=== PATIENT | female | born 1955 ===

== ENCOUNTER 2017-02-16 15:38 | Observation (INO) | payer MEDICAID, OTHER ==
[2017-02-16 15:54] VITALS: BMI 21.2
--- NOTE | 2017-02-16 16:51 | C.PDOC ---
History Of Present Illness Patient is a 61 year old female who presents to the ER complaining of a pressure chest pain for the last 3 days. Patient states she has been taking medication with relief but the comes back. Patient's last episode was at 11:00 and last approximately an hour. Patient reports having a "thrombosis" in the heart 8-9 years ago, since then has had episodes of the pain. Patient has no PCP. Patient denies any nausea, vomiting, diarrhea, or radiation pain. Time Seen by Provider: 02/16/17 16:27 Chief Complaint (Nursing): Chest Pain History Per: Patient History/Exam Limitations: no limitations Onset/Duration Of Symptoms: Days (3, last episode at 11:00) Quality: Pressure Associated Symptoms: denies: Nausea Past Medical History Reviewed: Historical Data, Nursing Documentation, Vital Signs Vital Signs: Last Vital Signs Temp 98.4 F 02/16/17 20:37 Pulse 61 02/16/17 20:37 Resp 16 02/16/17 20:37 BP 141/78 02/16/17 20:37 Pulse Ox 100 02/16/17 20:37 - Medical History PMH: Cardia Arrhythmia, HTN Surgical History: No Surg Hx Family History: States: Unknown Family Hx - Social History Hx Alcohol Use: No Hx Substance Use: No - Immunization History Hx Tetanus Toxoid Vaccination: No Hx Influenza Vaccination: No Hx Pneumococcal Vaccination: No Review Of Systems Constitutional: Negative for: Fever, Chills Cardiovascular: Positive for: Chest Pain Respiratory: Negative for: Shortness of Breath Gastrointestinal: Negative for: Nausea, Vomiting, Diarrhea Physical Exam - Physical Exam Additional Physical Exam Comments: Constitutional: No acute distress. Head: Normocephalic. Atraumatic. Eyes: PERRL. ENT: Moist mucous membranes. Neck: Supple. Cardiovascular: Murmur. Loud S2 Chest: No tenderness. Respiratory: Clear to auscultation bilaterally. GI: Soft. Nontender. Nondistended. Back: No CVA tenderness. Musculoskeletal: No tenderness or swelling of extremities. Skin: No rash. Neurologic: Alert, no focal deficit. ED Course And Treatment - Laboratory Results Result Diagrams: 02/16/17 17:05 02/16/17 17:05 ECG: Interpreted By Me, Viewed By Me ECG Rhythm: Sinus Rhythm (Normal, 70) Interpretation Of ECG: No st/t elevation or t wave inversion. Q wave in V1-V3. Prominent P wave. O2 Sat by Pulse Oximetry: 100 (Room air) Pulse Ox Interpretation: Normal - Radiology CXR: Read By Radiologist CXR Interpretation: Yes: No Acute Disease (No focal consolidation, significant pleural effusion, or definite pneumothorax identified.) Medical Decision Making Medical Decision Making: Blood work and chest x-ray ordered. Aspirin PO administered. Dr. Munoz accepts patient for cardiac observation. Disposition - Disposition Disposition Time: 17:57 Condition: FAIR - POA Core Measure Indicators: Chest Pain - Clinical Impression Clinical Impression: Chest pain - Scribe Statement The provider has reviewed the documentation as recorded by the Scribe Yoel Winn All medical record entries made by the Elaibcarlitos were at my direction and personally dictated by me. I have reviewed the chart and agree that the record accurately reflects my personal performance of the history, physical exam, medical decision making, and the department course for this patient. I have also personally directed, reviewed, and agree with the discharge instructions and disposition.
[2017-02-16 17:09] LABS: BASO # 0.1 K/uL (0.0-0.2); BASO % 0.8 % (0.0-2.0); EOS # 0.3 K/uL (0.0-0.7); EOS % 3.6 % (0.0-4.0); HEMATOCRIT 38.9 % (34.0-47.0); LYMPH # 2.2 K/uL (1.0-4.3); LYMPH % 28.1 % (20.0-40.0); MEAN CELL VOLUME 84.6 fL (81.0-99.0); MEAN CORPUSCULAR HEMOGLOBIN 27.9 pg (27.0-31.0); MEAN PLATELET VOLUME 8.2 fL (7.2-11.7); MONO # 0.8 K/uL (0.0-0.8); MONO % 10.8 % (0.0-10.0); WHITE BLOOD COUNT 7.8 K/uL (4.8-10.8)
[2017-02-16 17:19] LABS: CHLORIDE 103 mmol/L (98-107); POTASSIUM 4.3 mmol/L (3.6-5.2); SODIUM 141 mmol/L (132-148)
[2017-02-16 17:21] LABS: AST/SGOT 40 U/L (14-36); BILIRUBIN,TOTAL 0.6 mg/dL (0.2-1.3); CARBON DIOXIDE 25 mmol/L (22-30); GFR AFRICAN-AMERICAN > 60
[2017-02-16 17:22] LABS: ALB/GLOB RATIO 1.2 (1.0-2.1); ALKALINE PHOSPHATASE 76 U/L (38-126); ALT/SGPT 37 U/L (9-52); BLOOD UREA NITROGEN 14 mg/dL (7-17); CALCIUM 9.1 mg/dl (8.6-10.4); GLUCOSE,RANDOM 95 mg/dL (65-105); TOTAL PROTEIN 8.1 g/dL (6.3-8.3)
--- NOTE | 2017-02-16 18:51 | RAD ---
HISTORY: r/o PNA COMPARISON: Chest x-ray performed 01/30/16 TECHNIQUE: Chest PA and lateral FINDINGS: Examination limited by habitus. LUNGS: No focal consolidation. Please note that chest x-ray has limited sensitivity for the detection of pulmonary masses. PLEURA: No significant pleural effusion identified. No definite pneumothorax . CARDIOVASCULAR: Heart size appears top normal. Atherosclerotic calcification of the aortic knob. OSSEOUS STRUCTURES: Osseous demineralization. Degenerative changes of the spine and shoulders. VISUALIZED UPPER ABDOMEN: Unremarkable. OTHER FINDINGS: None. IMPRESSION: No focal consolidation, significant pleural effusion, or definite pneumothorax identified.
--- NOTE | 2017-02-17 00:07 | CP.PCM.HP ---
<Kelsey Flores - Last Filed: 02/17/17 02:40> History of Present Illness - History of Present Illness History of Present Illness: CC: "chest pain" 61 yea old female with PMHx of arrhythmia, HTN, heart murmur and Hx of "thrombosis in heart", presents with 6 month history of chest pain. Episodes last for a few minutes and usually resolve after patient takes muscle relaxer prescribed to her by her PMD in [facility]. This morning patient has chest pain that lasted for 1 hour. Chest pain was left sided, non radiating, pressure like and intermittent. It did not radiate anywhere and was rated at a 5 /10 at its worse, now 0/10. Patient took muscle relaxant, which helped for a few minutes, but then the pain re-occurred. Patient was brought in by daughter for evaluation. Pain in the past usually occurs when patient is cooking, washing dishes or cleaning. She admits to SOB when she climbs 5-6 steps. She is able to lay flat and does not wake up in the middle of the night gasping for air. Patient also reports palpitations when she walks for long distances. Patient last saw her PMD in October 2016 and was told "heart was large". She admits to "pre-infarct" 10 years ago. She also reports "thrombosis" in her heart 8-9 years ago and states she was not given any blood thinners. She was told some time ago that she has a murmur. She denies fevers, chills, nausea, vomiting, headache, leg swelling, changes in vision, cough. PMHx of arrhythmia, HTN, heart murmur and Hx of "thrombosis in heart". Medications: Bisoprolol 10 mg PO daily, Aspirin 81 mg PO daily, unknown muscle relaxant from [place]. NKDA Social Hx: quit tobacco use 20 years ago, denies alcohol and illicit drug use. Family Hx: Mother with DM. Surgery Hx: none PMD: in [place]. Present on Admission - Present on Admission Any Indicators Present on Admission: No Review of Systems - Constitutional Constitutional: absent: Chills, Fatigue, Fever - EENT Eyes: absent: Blurred Vision, Change in Vision - Cardiovascular Cardiovascular: Chest Pain, Chest Pain at Rest, Chest Pain with Activity, Dyspnea, Irregular Heart Rhythm, Palpitations. absent: Diaphoresis, Pain Radiating to Arm/Neck/Jaw, Leg Edema, Lightheadedness, Orthopnea, Paroxysmal Nocturnal Dyspnea, Pedal Edema, Radiating Pain, Syncope - Respiratory Respiratory: Dyspnea on Exertion. absent: Cough, Dyspnea - Gastrointestinal Gastrointestinal: absent: Abdominal Pain, Constipation, Diarrhea, Nausea, Vomiting - Genitourinary Genitourinary: absent: Difficulty Urinating, Dysuria - Musculoskeletal Musculoskeletal: absent: Arthralgias, Back Pain, Numbness, Tingling - Integumentary Integumentary: absent: Lesions - Neurological Neurological: absent: Dizziness, Numbness, Headaches, Syncope, Tingling - Endocrine Endocrine: absent: Palpitations, Polydipsia, Polyuria Past Patient History - Infectious Disease Hx of Infectious Diseases: None - Past Social History Smoking Status: Never Smoked - CARDIAC Hx Cardia Arrhythmia: Yes Hx Hypertension: Yes - PSYCHIATRIC Hx Substance Use: No - SURGICAL HISTORY Hx Surgeries: No - ANESTHESIA Hx Anesthesia: No Meds Allergies/Adverse Reactions: Allergies Allergy/AdvReac Type Severity Reaction Status Date / Time No Known Allergies Allergy Verified 02/16/17 15:54 Physical Exam - Constitutional Appears: No Acute Distress - Head Exam Head Exam: ATRAUMATIC, NORMAL INSPECTION, NORMOCEPHALIC - Eye Exam Eye Exam: EOMI, Normal appearance Pupil Exam: NORMAL ACCOMODATION - ENT Exam ENT Exam: Mucous Membranes Moist - Neck Exam Neck exam: Positive for: Full Rom, Normal Inspection - Respiratory Exam Respiratory Exam: Clear to Auscultation Bilateral, NORMAL BREATHING PATTERN - Cardiovascular Exam Cardiovascular Exam: REGULAR RHYTHM, +S1, +S2, Systolic Murmur - GI/Abdominal Exam GI & Abdominal Exam: Normal Bowel Sounds, Soft. absent: Distended, Tenderness - Extremities Exam Extremities exam: Positive for: full ROM, normal inspection. Negative for: pedal edema, tenderness - Back Exam Back exam: NORMAL INSPECTION - Neurological Exam Neurological exam: Alert, CN II-XII Intact, Oriented x3 - Psychiatric Exam Psychiatric exam: Normal Affect, Normal Mood - Skin Skin Exam: Dry, Normal Color, Warm Results - Vital Signs Recent Vital Signs: Last Vital Signs Temp 97.9 F 02/16/17 22:20 Pulse 67 02/16/17 22:20 Resp 18 02/16/17 22:20 BP 162/81 H 02/16/17 22:20 Pulse Ox 97 02/16/17 22:20 - Labs Result Diagrams: 02/16/17 17:05 02/16/17 17:05 Assessment & Plan (1) Chest pain Assessment and Plan: Admit to Tele/obs ANNA MARIE negative X 1. EKG: NSR 70 bpm, with non specific ST changes. f/u ANNA MARIE Q8H X2 with EKG. CXR shows left atrial enlargement as reviewed by attending. No infiltrates or pleural effusion as per official report. f/u FLP, Hgb A1C, TSH. Resume home meds: ASA 81 mg PO daily Bisoprolol 10 mg PO daily Status: Acute (2) Hx of cardiac arrhythmia Assessment and Plan: NSR on EKG. Patient reports history of thrombus in the heart and murmur. f/u 2D ECHO Status: Chronic (3) HTN (hypertension) Assessment and Plan: Bisoprolol 10 mg PO daily Status: Chronic (4) Prophylactic measure Assessment and Plan: Heparin 5000 SC Q8H Pepcid 20 mg PO BID SCDs Status: Acute <Jose Munoz P - Last Filed: 02/25/17 22:22> Results - Vital Signs Recent Vital Signs: Last Vital Signs Temp 97.3 F L 02/17/17 15:29 Pulse 64 02/17/17 15:29 Resp 18 02/17/17 15:29 BP 131/86 02/17/17 15:29 Pulse Ox 95 02/17/17 15:29 - Labs Result Diagrams: 02/17/17 07:25 02/17/17 07:25 Attending/Attestation - Attestation I have personally seen and examined this patient.: Yes I have fully participated in the care of the patient.: Yes I have reviewed all pertinent clinical information: Yes
[2017-02-17 07:34] LABS: BASO # 0.1 K/uL (0.0-0.2); BASO % 0.8 % (0.0-2.0); EOS # 0.4 K/uL (0.0-0.7); EOS % 5.3 % (0.0-4.0); HEMATOCRIT 39.3 % (34.0-47.0); LYMPH # 2.8 K/uL (1.0-4.3); LYMPH % 37.5 % (20.0-40.0); MEAN CELL VOLUME 84.8 fL (81.0-99.0); MEAN PLATELET VOLUME 8.2 fL (7.2-11.7); MONO # 0.8 K/uL (0.0-0.8); MONO % 10.4 % (0.0-10.0); NRBC % 0.1 % (0.0-2.0); RED CELL DISTRIBUTION WIDTH 13.4 % (11.5-14.5); WHITE BLOOD COUNT 7.5 K/uL (4.8-10.8)
[2017-02-17 08:14] VITALS: RESP 18
[2017-02-17 08:16] LABS: CHLORIDE 98 mmol/L (98-107); POTASSIUM 4.8 mmol/L (3.6-5.2); SODIUM 140 mmol/L (132-148)
[2017-02-17 08:17] LABS: CHOLESTEROL 277 mg/dL (0-199)
[2017-02-17 08:18] LABS: ALB/GLOB RATIO 1.1 (1.0-2.1); ALKALINE PHOSPHATASE 82 U/L (38-126); ALT/SGPT 32 U/L (9-52); AST/SGOT 37 U/L (14-36); BILIRUBIN,TOTAL 0.4 mg/dL (0.2-1.3); BLOOD UREA NITROGEN 13 mg/dL (7-17); CALCIUM 9.3 mg/dl (8.6-10.4); CARBON DIOXIDE 30 mmol/L (22-30); GFR AFRICAN-AMERICAN > 60; GLUCOSE,RANDOM 89 mg/dL (65-105); TOTAL PROTEIN 7.8 g/dL (6.3-8.3)
[2017-02-17 08:43] LABS: THYROID STIMULATING HORMONE 3.31 mIU/L (0.46-4.68)
[2017-02-17 15:30] VITALS: BP 131/86; PULSE 64; TEMP 97.3; O2SAT 95
--- NOTE | 2017-02-17 15:46 | CP.PCM.DIS ---
<DebbieDara - Last Filed: 02/17/17 15:56> Provider - Provider Date of Admission: 02/16/17 20:16 Attending physician: Jose Munoz MD Primary care physician: None here- in [place]- instructed to go to [facility] Consults: None Time Spent in preparation of Discharge (in minutes): 60 Hospital Course - Lab Results Lab Results: Most Recent Lab Values WBC 7.5 K/uL (4.8-10.8) 02/17/17 07:25 RBC 4.63 Mil/uL (3.80-5.20) 02/17/17 07:25 Hgb 13.0 g/dL (11.0-16.0) 02/17/17 07:25 Hct 39.3 % (34.0-47.0) 02/17/17 07:25 MCV 84.8 fL (81.0-99.0) 02/17/17 07:25 MCH 28.0 pg (27.0-31.0) 02/17/17 07:25 MCHC 33.0 g/dL (33.0-37.0) 02/17/17 07:25 RDW 13.4 % (11.5-14.5) 02/17/17 07:25 Plt Count 367 K/uL (130-400) 02/17/17 07:25 MPV 8.2 fL (7.2-11.7) 02/17/17 07:25 Neut % (Auto) 46.0 % (50.0-75.0) L 02/17/17 07:25 Lymph % (Auto) 37.5 % (20.0-40.0) 02/17/17 07:25 [place]ockley % (Auto) 10.4 % (0.0-10.0) H 02/17/17 07:25 Eos % (Auto) 5.3 % (0.0-4.0) H 02/17/17 07:25 Baso % (Auto) 0.8 % (0.0-2.0) 02/17/17 07:25 Neut # 3.5 K/uL (1.8-7.0) 02/17/17 07:25 Lymph # 2.8 K/uL (1.0-4.3) 02/17/17 07:25 [place] # 0.8 K/uL (0.0-0.8) 02/17/17 07:25 Eos # 0.4 K/uL (0.0-0.7) 02/17/17 07:25 Baso # 0.1 K/uL (0.0-0.2) 02/17/17 07:25 Sodium 140 mmol/L (132-148) 02/17/17 07:25 Potassium 4.8 mmol/L (3.6-5.2) 02/17/17 07:25 Chloride 98 mmol/L (98-107) 02/17/17 07:25 Carbon Dioxide 30 mmol/L (22-30) 02/17/17 07:25 Anion Gap 17 (10-20) 02/17/17 07:25 BUN 13 mg/dL (7-17) 02/17/17 07:25 Creatinine 0.8 MG/DL (0.7-1.2) 02/17/17 07:25 Est GFR ( Amer) > 60 02/17/17 07:25 Est GFR (Non-Af Amer) > 60 02/17/17 07:25 Random Glucose 89 mg/dL (65-105) 02/17/17 07:25 Hemoglobin A1c 5.6 % (4.2-6.5) 02/17/17 07:25 Calcium 9.3 mg/dl (8.6-10.4) 02/17/17 07:25 Total Bilirubin 0.4 mg/dL (0.2-1.3) 02/17/17 07:25 AST 37 U/L (14-36) H 02/17/17 07:25 ALT 32 U/L (9-52) 02/17/17 07:25 Alkaline Phosphatase 82 U/L (38-126) 02/17/17 07:25 Total Creatine Kinase 48 U/L (30-135) 02/17/17 14:55 CK-MB (Mass) 0.47 ng/mL (0.0-3.38) 02/17/17 14:55 Troponin I < 0.0120 ng/mL (0.00-0.120) 02/16/17 17:05 Troponin I, Quant < 0.0120 ng/mL (0.00-0.120) 02/17/17 14:55 Total Protein 7.8 g/dL (6.3-8.3) 02/17/17 07:25 Albumin 4.1 g/dL (3.5-5.0) 02/17/17 07:25 Globulin 3.7 gm/dL (2.2-3.9) 02/17/17 07:25 Albumin/Globulin Ratio 1.1 (1.0-2.1) 02/17/17 07:25 Triglycerides 340 mg/dL (0-149) H 02/17/17 07:25 Cholesterol 277 mg/dL (0-199) H 02/17/17 07:25 LDL Cholesterol Direct 150 mg/dL (0-129) H 02/17/17 07:25 HDL Cholesterol 34 mg/dL (30-70) 02/17/17 07:25 TSH 3rd Generation 3.31 mIU/L (0.46-4.68) 02/17/17 07:25 - Hospital Course Hospital Course: 61 yea old female with PMHx of arrhythmia, HTN, heart murmur and Hx of "thrombosis in heart", presents with 6 month history of chest pain. Episodes last for a few minutes and usually resolve after patient takes muscle relaxer prescribed to her by her PMD in [facility]. This morning patient has chest pain that lasted for 1 hour. Chest pain was left sided, non radiating, pressure like and intermittent. It did not radiate anywhere and was rated at a 5 /10 at its worse, now 0/10. Patient took muscle relaxant, which helped for a few minutes, but then the pain re-occurred. Patient was brought in by daughter for evaluation. Pain in the past usually occurs when patient is cooking, washing dishes or cleaning. She admits to SOB when she climbs 5-6 steps. She is able to lay flat and does not wake up in the middle of the night gasping for air. Patient also reports palpitations when she walks for long distances. Patient last saw her PMD in October 2016 and was told "heart was large". She admits to "pre-infarct" 10 years ago. She also reports "thrombosis" in her heart 8-9 years ago and states she was not given any blood thinners. She was told some time ago that she has a murmur. She denies fevers, chills, nausea, vomiting, headache, leg swelling, changes in vision, cough. Pt admitted to hospital for cardiac work up. ROMIs and EKGs were negative x 3. Echo cardiogram was done- at time of discharge the official report is pending - pt instructed to follow up in [facility] to get results. On hospital day 1, symptoms were completely resolved, cardiac work up negative excluding Lipid panel which showed hypercholesterolemia- pt started on statin. Patient stable and ready for discharge with instructions to follow up in the [facility] to establish care and get results of echo. Diagnoses: atypical chest pain, hyperlipidemia, arrhythmia, heart murmur Please see EMR for full details of hospitalization. - Date & Time of H&P Date of H&P: 02/17/17 Time of H&P: 00:07 Discharge Exam - Head Exam Head Exam: ATRAUMATIC, NORMAL INSPECTION, NORMOCEPHALIC - Eye Exam Eye Exam: EOMI, Normal appearance, PERRL Pupil Exam: NORMAL ACCOMODATION, PERRL - ENT Exam ENT Exam: Mucous Membranes Moist, Normal Exam - Neck Exam Neck exam: Full Rom, Normal Inspection - Respiratory Exam Respiratory Exam: Clear to PA & Lateral, NORMAL BREATHING PATTERN, UNREMARKABLE. absent: Chest Wall Tenderness, Rales, Rhonchi, Wheezes, Respiratory Distress, Stridor - Cardiovascular Exam Cardiovascular Exam: REGULAR RHYTHM, +S1, +S2, Systolic Murmur - GI/Abdominal Exam GI & Abdominal Exam: Normal Bowel Sounds, Soft, Unremarkable. absent: Tenderness - Extremities Exam Extremities exam: full ROM, normal inspection - Neurological Exam Neurological exam: Alert, CN II-XII Intact, Normal Gait, Oriented x3 - Psychiatric Exam Psychiatric exam: Normal Affect, Normal Mood - Skin Skin Exam: Dry, Intact, Normal Color, Warm Discharge Plan - Discharge Medications Prescriptions: Aspirin [Aspirin Chewable] 81 mg PO DAILY #30 chew Rosuvastatin Calcium 2.5 [Crestor] 2.5 mg PO HS #30 tab - Follow Up Plan Condition: STABLE Disposition: HOME/ ROUTINE Additional Instructions: Patient stable and cleared for discharge as per Dr. Murphy. Please take Aspirin 81mg everyday for your heart. You are begin discharged on a medication to help lower your cholesterol - please take it every night, sometimes it can cause muscle soreness- this should go away. If it does not go away, please see your primary care provider. If you do not have a primary care provider, please call to make an appointment with [facility] the [facility] to establish primary care provider services. They will help re-fill prescriptions and monitor your health. Additionally, then echocardiogram of your heart has not been officially read by a [employer] teacher yet, so you will be able to get your results in the clinic at that time. Please return to hospital if you have any recurrence of symptoms. <Barney Murphy - Last Filed: 02/17/17 16:11> Provider - Provider Date of Admission: 02/16/17 20:16 Attending physician: Jose Munoz MD [facility] Course - Lab Results Lab Results: Most Recent Lab Values WBC 7.5 K/uL (4.8-10.8) 02/17/17 07:25 RBC 4.63 Mil/uL (3.80-5.20) 02/17/17 07:25 Hgb 13.0 g/dL (11.0-16.0) 02/17/17 07:25 Hct 39.3 % (34.0-47.0) 02/17/17 07:25 MCV 84.8 fL (81.0-99.0) 02/17/17 07:25 MCH 28.0 pg (27.0-31.0) 02/17/17 07:25 MCHC 33.0 g/dL (33.0-37.0) 02/17/17 07:25 RDW 13.4 % (11.5-14.5) 02/17/17 07:25 Plt Count 367 K/uL (130-400) 02/17/17 07:25 MPV 8.2 fL (7.2-11.7) 02/17/17 07:25 Neut % (Auto) 46.0 % (50.0-75.0) L 02/17/17 07:25 Lymph % (Auto) 37.5 % (20.0-40.0) 02/17/17 07:25 [place] % (Auto) 10.4 % (0.0-10.0) H 02/17/17 07:25 Eos % (Auto) 5.3 % (0.0-4.0) H 02/17/17 07:25 Baso % (Auto) 0.8 % (0.0-2.0) 02/17/17 07:25 Neut # 3.5 K/uL (1.8-7.0) 02/17/17 07:25 Lymph # 2.8 K/uL (1.0-4.3) 02/17/17 07:25 [place] # 0.8 K/uL (0.0-0.8) 02/17/17 07:25 Eos # 0.4 K/uL (0.0-0.7) 02/17/17 07:25 Baso # 0.1 K/uL (0.0-0.2) 02/17/17 07:25 Sodium 140 mmol/L (132-148) 02/17/17 07:25 Potassium 4.8 mmol/L (3.6-5.2) 02/17/17 07:25 Chloride 98 mmol/L (98-107) 02/17/17 07:25 Carbon Dioxide 30 mmol/L (22-30) 02/17/17 07:25 Anion Gap 17 (10-20) 02/17/17 07:25 BUN 13 mg/dL (7-17) 02/17/17 07:25 Creatinine 0.8 MG/DL (0.7-1.2) 02/17/17 07:25 Est GFR ( Amer) > 60 02/17/17 07:25 Est GFR (Non-Af Amer) > 60 02/17/17 07:25 Random Glucose 89 mg/dL (65-105) 02/17/17 07:25 Hemoglobin A1c 5.6 % (4.2-6.5) 02/17/17 07:25 Calcium 9.3 mg/dl (8.6-10.4) 02/17/17 07:25 Total Bilirubin 0.4 mg/dL (0.2-1.3) 02/17/17 07:25 AST 37 U/L (14-36) H 02/17/17 07:25 ALT 32 U/L (9-52) 02/17/17 07:25 Alkaline Phosphatase 82 U/L (38-126) 02/17/17 07:25 Total Creatine Kinase 48 U/L (30-135) 02/17/17 14:55 CK-MB (Mass) 0.47 ng/mL (0.0-3.38) 02/17/17 14:55 Troponin I < 0.0120 ng/mL (0.00-0.120) 02/16/17 17:05 Troponin I, Quant < 0.0120 ng/mL (0.00-0.120) 02/17/17 14:55 Total Protein 7.8 g/dL (6.3-8.3) 02/17/17 07:25 Albumin 4.1 g/dL (3.5-5.0) 02/17/17 07:25 Globulin 3.7 gm/dL (2.2-3.9) 02/17/17 07:25 Albumin/Globulin Ratio 1.1 (1.0-2.1) 02/17/17 07:25 Triglycerides 340 mg/dL (0-149) H 02/17/17 07:25 Cholesterol 277 mg/dL (0-199) H 02/17/17 07:25 LDL Cholesterol Direct 150 mg/dL (0-129) H 02/17/17 07:25 HDL Cholesterol 34 mg/dL (30-70) 02/17/17 07:25 TSH 3rd Generation 3.31 mIU/L (0.46-4.68) 02/17/17 07:25 Attending/Attestation - Attestation I have personally seen and examined this patient.: Yes I have fully participated in the care of the patient.: Yes I have reviewed all pertinent clinical information, including history, physical exam and plan: Yes Notes (Text): Medical attending: Patient was seen and examined by me, agrees the above note by medical technical writer. We saw the patient together. Patient's family member was present as well and helped with translation. At this time the patient was no longer having any chest pain at rest, and was not having shortness of breath or difficulty breathing. On exam we also had the patient walk with us into the hallway. She was able to ambulate without any assistance, she denied having shortness of breath when we walked, denied having chest pain when walking, denied having palpitations or abdominal pain we walked. We walked up to the telemetry station. On review of telemetry her heart rate is stable about 70-80 bpm appears to be normal sinus did not have any skipped beats or PVCs. The patient had a 2-D echo done, the results of which are still pending at this moment. We encouraged the patient to him have lifestyle and diet modification since her cholesterol is relatively high her LDL is 155. She needs to be on a statin class medication, as well as a baby aspirin and continue her blood pressure medications. The patient [place] from a [place] country, we encouraged her to follow-up at the [facility] in the meantime Thank you very much, Barney Murphy.
[2017-02-17] MEDS ORDERED: Rosuvastatin Calcium 2.5 mg Tab PO SCH (22:00)
[2017-02-18] MEDS ORDERED: Pneumococcal 23-Valent Vaccine IM ONE (10:00)
--- NOTE | 2017-02-19 16:31 | CARD ---
APPROVED REPORT EKG Measurement Heart [id number] <Conclusion> Normal sinus rhythm Possible Left atrial enlargement Left ventricular hypertrophy Inferior infarct, age undetermined Anterior infarct, age undetermined T wave abnormality, consider lateral ischemia Abnormal ECG
--- NOTE | 2017-02-20 10:15 | CARD ---
APPROVED REPORT EXAM: Two-dimensional and M-mode echocardiogram with Doppler and color Doppler. Other Information Quality : GoodRhythm : NSR INDICATION Abnormal EKG/Arrhythmia Chest Pain Palpitations RISK FACTORS Hypertension M-Mode DIMENSIONS RVDd1.51 (2.1-3.2cm)Left Atrium (MM)3.84 (2.5-4.0cm) IVSd1.48 (0.7-1.1cm)Aortic Root2.80 (2.2-3.7cm) LVDd4.98 (4.0-5.6cm)Aortic Cusp Exc.1.07 (1.5-2.0cm) PWd1.48 (0.7-1.1cm)FS (%) 30 % LVDs3.47 (2.0-3.8cm)LVEF (%)58 (>50%) Aortic Valve AoV Peak Oipcptwl477.8cm/Anika Peak GR.8mmHg Mitral Valve MV E Czsgbatl009.8cm/sMV A Cyxfmaqq846.2cm/s Tricuspid Valve TR Peak Dctiubkn323zw/sTR Peak Gr.65wrKiKMQG40gzVv <Conclusion> Left ventricle: thickness: normal; size: normal; Apical and paulino septal hypokinesisoverall ejection fraction: 65%: diastolic filling pressures: elevated Mitral valve: annulus: normal: leaflets: normal: excursion: normal; no significant trans-mitral gradient: moderate incompetence: left atrium: upper limit of normal Aortic valve: leaflets: calcific thickening: excursion: decreased; no significant trans-aortic gradient: No significant incompetence: aortic root: normal Right sided Structures: Pulmonary valve: normal; no significant incompetence; Tricuspid valve: normal; no significant incompetence: Intra-cardiac hemodynamics: pulmonary systolic pressures:40mmhg; central venous pressures: normal No pericardial effusion
--- NOTE | 2017-02-20 12:28 | CARD ---
APPROVED REPORT EKG Measurement Heart [id number] <Conclusion> Normal sinus rhythm Possible Left atrial enlargement Possible Inferior infarct, age undetermined Possible Anterior infarct, age undetermined Abnormal ECG
== END 2017-02-17 17:30 | disposition home or self-care (01) ==
LOC: C.ER 15:38 → C.6T 20:16
PROVIDERS: ADMIT Internal Medicine; ATTEND Internal Medicine
DX: R07.89 Other chest pain (principal); E78.5 Hyperlipidemia, unspecified; R01.1 Cardiac murmur, unspecified; Z79.82 Long term (current) use of aspirin; Z87.891 Personal history of nicotine dependence; I10 Essential (primary) hypertension
CPT/HCPCS: 36415; 71020; 80053; 80061; 82550; 82553; 83036; 84443; 84484; 85025; 93005; 93306; 99285; G0378; J1644

== ENCOUNTER 2017-06-06 21:30 | Emergency (ER) | payer SELFPAY ==
[2017-06-06 21:31] VITALS: BMI 21.2
[2017-06-06 22:34] VITALS: BP 166/97; PULSE 71; RESP 20; TEMP 98.2; O2SAT 100
--- NOTE | 2017-06-06 23:23 | C.PDOC ---
History Of Present Illness A 61 y/o F c/o pain to the right hip that radiates to the right groin since this morning. Pt reports she also fell getting out of the tub a week and half ago, but did not feel pain at the time. Took Tylenol with no relief. Denies leg weakness, numbness, or any other complaints. - HPI Time Seen by Provider: 06/06/17 22:37 Chief Complaint (Nursing): Trauma History Per: Patient History/Exam Limitations: no limitations Onset/Duration Of Symptoms: Hrs Location Of Injury: Right: Hip (Radiation to the right groin) Severity: Mild Recent travel outside of the [place]: No Additional History Per: Patient Past Medical History Reviewed: Historical Data, Nursing Documentation, Vital Signs Vital Signs: Last Vital Signs Temp 98.2 F 06/06/17 22:21 Pulse 71 06/06/17 22:21 Resp 20 06/06/17 22:21 BP 166/97 H 06/06/17 22:21 Pulse Ox 100 06/07/17 00:07 - Medical History PMH: Cardia Arrhythmia, HTN Family History: States: Unknown Family Hx - Social History Hx Alcohol Use: No Hx Substance Use: No - Immunization History Hx Tetanus Toxoid Vaccination: No Hx Influenza Vaccination: No Hx Pneumococcal Vaccination: No Review Of Systems Except As Marked, All Systems Reviewed And Found Negative. Musculoskeletal: Positive for: Other (Right hip pain, radiation to the right groin) Neurological: Negative for: Weakness, Numbness Physical Exam - Physical Exam Appears: Non-toxic, No Acute Distress Skin: Warm, Dry Head: Atraumatic, Normacephalic Extremity: Normal ROM, Tenderness (Tenderness to the lateral aspect of the right hip and right inguinal area.), Capillary Refill (<2secs), No Deformity Extremity: Bilateral: Normal Color And Temperature Pulses: Left Femoral: Normal, Right Femoral: Normal Neurological/Psych: Oriented x3, Normal Motor, Normal Sensation, Other (No focal deficit) Gait: Steady ED Course And Treatment O2 Sat by Pulse Oximetry: 100 (RA) Pulse Ox Interpretation: Normal Progress Note: Impression: A 61 y/o F c/o pain to the right hip that radiates to the right groin since this morning. Plans: XRAY right hip, Toradol, Reassess. XRAY Hip: No fractures or dislocation. Pt is in no acute distress at this time and is improving with the Hip pain. Pt was instructed to follow up with PMD for further evaluation and to return if symptoms worsens. Disposition Counseled Patient/Family Regarding: Diagnosis, Need For Followup - Disposition Disposition: HOME/ ROUTINE Disposition Time: 23:20 Condition: STABLE Additional Instructions: Take meds as directed Follow up with PMD Return to ER if worse Prescriptions: Ibuprofen [Motrin] 600 mg PO Q6H #30 tab Instructions: Hip Pain (ED) Forms: [employer] (Kyrgyz) Print Language: GREEK - Clinical Impression Clinical Impression: Hip pain, Groin strain - Scribe Statement The provider has reviewed the documentation as recorded by the Scribcarlitos ramirez All medical record entries made by the Elaibcarlitos were at my direction and personally dictated by me. I have reviewed the chart and agree that the record accurately reflects my personal performance of the history, physical exam, medical decision making, and the department course for this patient. I have also personally directed, reviewed, and agree with the discharge instructions and disposition.
--- NOTE | 2017-06-07 10:18 | RAD ---
PROCEDURE: Right Hip Radiographs. HISTORY: r/o fx s/p fall COMPARISON: None. FINDINGS: BONES: Normal. No fracture. JOINTS: Normal. SOFT TISSUES: Normal. OTHER FINDINGS: None. IMPRESSION: Normal radiographs of right hip.
== END 2017-06-06 23:28 | disposition home or self-care (01) ==
LOC: C.ER 21:30
DX: S39.011A Strain of muscle, fascia and tendon of abdomen, initial encounter (principal); W18.30XA Fall on same level, unspecified, initial encounter; M25.551 Pain in right hip
CPT/HCPCS: 73502; 96372; 99284; J1885